=== PATIENT | male | born 1980 | race Caucasian/White ===

== ENCOUNTER 2020-07-04 22:25 | Observation (INO) | payer BC, SELFPAY ==
[2020-07-04 22:26] VITALS: BP 150/93; PULSE 96; RESP 17; TEMP 36.8; O2SAT 99; BMI 36.9
--- NOTE | 2020-07-04 22:32 | XR_ITS ---
PROCEDURE: XR CHEST 2V Referring Doctor: Dong Canas Patient Age:39Y CLINICAL HISTORY: chest pain left-sided chest pain radiates to the left arm and jaw all arm is tingling and hertz. COMPARISON: No exams were available for comparison FINDINGS: PA and lateral chest performed today. Upright. No previous chest films for comparison. The lungs are well expanded and clear. The cardiomediastinal silhouette and pulmonary vascularity are within normal limits. The lungs are clear without infiltrates, suspicious nodules, or pleural effusions. No acute bony abnormalities. IMPRESSION: Lungs clear with nothing definitely acute at the chest.. Heart normal size Dictated by: Yung Krishnamurthy MD 07/05/2020 00:43 Yung Krishnamurthy MD in [place] 07/05/2020 00:43
--- NOTE | 2020-07-04 22:33 | ECG_ITS ---
APPROVED REPORT Exam: Resting ECG HR:108 bpm ECG Measurements Heart Rate 108 AXES NH 148 P 35 QRSd 76 QRS 78 QT 324 T 52 QTc 434 Conclusion Sinus tachycardia Otherwise normal ECG Electronically signed by : Sebastián Rachel, 07/06/2020 17:32:16
[2020-07-04 22:42] LABS: Basophils # 0.1 K/mm3 (0-0.2); Basophils % 0.9 % (0.1-2.0); Eosinophils # 0.5 K/mm3 (0.0-0.4); Eosinophils % 3.5 % (0.1-12.0); Hematocrit 47.5 % (42.0-52.0); Hemoglobin 16.5 g/dL (14.1-18.0); Lymphocytes # 3.9 K/mm3 (0.7-4.5); Lymphocytes % 30.1 % (10-50); Mean Corpuscular HGB Conc 34.7 g/dL (31.8-35.4); Mean Corpuscular Hemoglobin 32.7 pg (27.0-31.2); Mean Corpuscular Volume 94.2 fl (80-94); Mean Platelet Volume 9.1 fl (7.4-10.4); Monocytes # 0.7 K/mm3 (0.1-1.0); Monocytes % 5.4 % (1.7-9.3); Neutrophils # 7.8 K/mm3 (1.8-7.8); Neutrophils % 60.1 % (37.0-80.0); Platelet Count 217 K/mm3 (142-424); Red Blood Count 5.04 M/mm3 (4.60-6.20); Red Cell Distribution Width 13.2 % (11.5-17.5)
[2020-07-04 22:50] LABS: Chloride 101 mmol/L (98-107); Sodium 136 mmol/L (136-145)
[2020-07-04 22:53] LABS: Anion Gap 15.5 mEq/L (5-15); Blood Urea Nitrogen 18 mg/dl (9-20); Carbon Dioxide 25 mmol/L (22.0-30.0); Creatinine Clearance Estimated 198 mL/min (50-200); Estimated Glomerular Filt Rate 94 ml/min (>60); GFR (African American) 114 ML/MIN (>60)
[2020-07-04 22:54] VITALS: BP 140/79; PULSE 96; RESP 18; O2SAT 96
[2020-07-04 22:54] LABS: Calcium 9.5 mg/dl (8.4-10.2); Glucose 199 mg/dl (74-100)
[2020-07-04 22:57] LABS: Potassium 5.5 mmoL/L (3.5-5.1)
[2020-07-04 23:00] VITALS: BP 127/79; PULSE 103; RESP 18; O2SAT 97
--- NOTE | 2020-07-04 23:05 | HMH.EDCP ---
ED Disposition Clinical Impression: Obesity (BMI 30-39.9), Tobacco use, COVID-19 virus IgG antibody detected Chest pain Qualifiers: Chest pain type: precordial pain Qualified Code(s): R07.2 - Precordial pain Diabetes mellitus Qualifiers: Diabetes mellitus type: type 2 Diabetes mellitus plug stitcher insulin use: unspecified shelter insulin use status Diabetes mellitus complication status: with other specified complication Qualified Code(s): E11.69 - Type 2 diabetes mellitus with other specified complication Disposition: Admitted as Observation Condition on Discharge: Good Referrals: PCP,No [Primary Care Provider] - - Critical Care Critical Care Time: No Attestation: On 07/04/20, the high probability of a clinically significant, sudden or life threatening deterioration of the following system(s) required my full and direct attention, intervention and personal management. The time I documented below is in addition to time spent performing reported procedures but includes the following listed in this critical care notation. Medical Decision Making - Medical Records Medical records reviewed: Yes: I reviewed the patient's medical records. - George Inquiry Pt receiving controlled substance: No Vital Signs: 07/04/20 22:26 07/04/20 22:54 Temperature 98.3 F Temperature Source Oral Pulse Rate [Left Radial] 96 H 96 H Respiratory Rate 17 18 Blood Pressure [Right Arm] 150/93 H 140/79 Blood Pressure Mean [Right Arm] 112 99 Blood Pressure Source [Right Arm] Automatic Cuff Blood Pressure Position [Right Arm] Sitting 02 Sat by Pulse Oximetry 99 96 Oxygen Delivery Method Room Air Room Air - Lab Data Lab results reviewed: Yes: I reviewed the patient's lab results. Lab Results 07/04/20 22:30: WBC 13.0 H, RBC 5.04, Hgb 16.5, Hct 47.5, MCV 94.2 H, MCH 32.7 H, MCHC 34.7, RDW 13.2, Plt Count 217, MPV 9.1, Neut % (Auto) 60.1, Lymph % (Auto) 30.1, Hemphill % (Auto) 5.4, Eos % (Auto) 3.5, Baso % (Auto) 0.9, Neut # (Auto) 7.8, Lymph # (Auto) 3.9, Hemphill # (Auto) 0.7, Eos # (Auto) 0.5 H, Baso # (Auto) 0.1 07/04/20 22:30: Sodium 136, Potassium 5.5 H, Chloride 101, Carbon Dioxide 25, Anion Gap 15.5 H, BUN 18, Creatinine 0.90, Estimated Creat Clear 198, Estimated GFR 94, Est GFR ( Amer) 114, Glucose 199 H, Calcium 9.5, Troponin I 0.02 Result diagrams: 07/04/20 22:30 07/04/20 22:30 Orders (Tests/Meds): ED MEDICATIONS Generic Name Dose Route Start Last Admin Trade Name Freq PRN Reason Stop Dose Admin Sodium Chloride 1,000 mls @ 999 mls/hr 07/04/20 22:45 07/04/20 22:50 Sod Chlor 0.9% 1000ml Bag IV 07/04/20 23:45 999 mls/hr .Q1H1M STAR Administration Discontinued Medications Generic Name Dose Route Start Last Admin Trade Name Freq PRN Reason Stop Dose Admin Aspirin 81 mg 07/04/20 22:34 07/04/20 22:50 Aspirin 81mg Chewable Tablet PO 07/04/20 22:35 81 mg ONCE ONE Administration Nitroglycerin 0.4 mg 07/04/20 22:34 07/04/20 22:50 Nitroglycerin 0.4mg Sl Tablet SL 07/04/20 22:35 0.4 mg ONCE ONE Administration Nitroglycerin 1 gm 07/04/20 23:05 07/04/20 23:11 Nitroglycerin 1 Gm Ointment TD 07/04/20 23:06 1 gm ONCE ONE Administration ORDERS Category Date Time Status Chest XR 2 view (NOT portable) [XR chest 2V] Stat Exams 07/04/20 22:32 Taken Covid-19 IgG/IgM ([facility]) Stat Lab 07/04/20 22:30 Received Troponin I Q3H Lab 07/05/20 01:45 Ordered Troponin I Q3H Lab 07/05/20 04:45 Ordered - Radiology Data #1 Image(s): Chest Image Reviewed: Yes I reviewed the patient's radiology image Preliminary Findings: Normal/NAD - ECG Data Tracing #1 Normal Sinus Rhythm: Yes Ischemic changes: non-specific ST-T wave changes Chest Pain HPI - General Chief Complaint: Chest Pain Stated Complaint: chest pain Time Seen by Provider: 07/04/20 22:40 Mode of Arrival: Ambulatory Source of Information: Patient, Medical Record Limitations: No Limitations Description o
[2020-07-04 23:06] LABS: Troponin I 0.02 ng/ml (0.00-0.034)
--- NOTE | 2020-07-04 23:09 | PC.NURSE ---
calling [facility] to obtain prior heart cath records
--- NOTE | 2020-07-04 23:14 | PC.NURSE ---
medical release consent sent to house wirer at [facility]. stated she would fax me the records
[2020-07-04 23:52] VITALS: BP 133/84; PULSE 101; RESP 18; O2SAT 95
[2020-07-04 23:53] LABS: Coronavirus 19 IgG Antibody Positive (Negative); Coronavirus 19 IgM Antibody Negative (Negative)
[2020-07-05] VITALS (13 sets, daily range): BP systolic 111–140; BP diastolic 66–77; PULSE 60–90; RESP 16–20; TEMP 36.4–36.8; O2SAT 95–98; BMI 35.1; BMI 35.0
--- NOTE | 2020-07-05 | CA_ITS ---
APPROVED REPORT Exam: Pharmacologic Technologist: Fatoumata Medrano, Ht: 6 ft 0 in Wt: 264 lbs BSA: 2.40 m2 HR: 78 bpm BP: 118/77 mmHg Indications: Chest pain Stress Test Details Test: LEXISCAN HR Resting HR: 80 bpm Max Heart Rate (APMHR): 181 bpm Max HR Achieved: 104 bpm Target HR (85% APMHR): 153 bpm % of APMHR: 57 Recovery HR: 87 bpm BP Resting BP: 118/77 mmHg Max BP: 140/76 mmHg Recovery BP: 130.0/69.0 mmHg ECG Clinical Exercise duration: 04:04 min Highest Stage Achieved: Exercise capacity: 1.0 METs Stress ECG Conclusion Resting EKG: Sinus Rhythm Lexiscan portion completed Pt c/o SOB during peak infusion. Symptoms: No chest pain, (+) SOB during peak infusion, resolved in recovery. Arrhythmias/Ectopy: No ectopy ST-T Changes: Less than 1.5mm ST Depression. Conclusion: Images to follow Test Summary REST . . . . . . . Resting REST 05:18 . . 80 . 118/ 77 . . Stage 1 . . . . . . . Myoview Injected Stage 1 01:00 . . 93 . . . . Stage 2 01:00 . . 104 . 114/ 73 . . Stage 3 01:00 . . 84 . 114/ 78 . . Stage 4 01:00 . . 85 . 140/ 76 . . Stage 4 01:04 . . 90 . 140/ 76 . Stop exercise at 04:04 RECOVERY 01:00 . . 89 . 118/ 69 . . RECOVERY 02:00 . . 87 . 138/ 74 . . RECOVERY 03:00 . . 82 . 138/ 74 . . RECOVERY 03:22 . . 87 . 130/ 69 . . Electronically signed by : Sung Dixon, 07/06/2020 05:47:52
[2020-07-05 00:05] LABS: Chol/HDL Ratio 8.2 (1-3.5); Cholesterol 280 mg/dl (140-200); HDL Cholesterol 34 mg/dl (40-60); Triglycerides 362 mg/dl (30-150); VLDL Cholesterol 72 mg/dL (0-40)
[2020-07-05 00:06] LABS: Hemoglobin A1C 6.6 % (4.0-6.0)
[2020-07-05 00:12] LABS: Direct LDL Cholesterol 205.97 mg/dL (100-129)
--- NOTE | 2020-07-05 02:33 | PC.NURSE ---
PT ARRIVED TO THE FLOOR VIA W/C FROM ED AT 0235
[2020-07-05 02:43] LABS: Troponin I < 0.01 ng/ml (0.00-0.034)
--- NOTE | 2020-07-05 03:09 | PC.NURSE ---
Pt states he hasn't taken home medication for 3 weeks
--- NOTE | 2020-07-05 03:42 | PC.NURSE ---
Pt states he wears a CPAP at home. Will try to have girlfriend bring in AM.
[2020-07-05 05:01] LABS: Basophils # 0.1 K/mm3 (0-0.2); Basophils % 0.8 % (0.1-2.0); Eosinophils # 0.4 K/mm3 (0.0-0.4); Eosinophils % 4.1 % (0.1-12.0); Hemoglobin 14.4 g/dL (14.1-18.0); Lymphocytes # 3.6 K/mm3 (0.7-4.5); Lymphocytes % 35.4 % (10-50); Mean Corpuscular Hemoglobin 32.9 pg (27.0-31.2); Mean Corpuscular Volume 93.9 fl (80-94); Monocytes # 0.5 K/mm3 (0.1-1.0); Monocytes % 4.7 % (1.7-9.3); Neutrophils # 5.6 K/mm3 (1.8-7.8); Platelet Count 189 K/mm3 (142-424); Red Blood Count 4.37 M/mm3 (4.60-6.20); Red Cell Distribution Width 13.2 % (11.5-17.5); White Blood Count 10.1 K/mm3 (4.8-10.8)
[2020-07-05 05:10] LABS: Anion Gap 9.2 mEq/L (5-15); Blood Urea Nitrogen 17 mg/dl (9-20); Calcium 8.9 mg/dl (8.4-10.2); Carbon Dioxide 25 mmol/L (22.0-30.0); Chloride 107 mmol/L (98-107); Creatinine Clearance Estimated 212 mL/min (50-200); Estimated Glomerular Filt Rate 108 ml/min (>60); GFR (African American) 130 ML/MIN (>60); Magnesium 1.9 mg/dl (1.6-2.3); Potassium 4.2 mmoL/L (3.5-5.1); Sodium 137 mmol/L (136-145)
[2020-07-05 05:18] LABS: Glucose 152 mg/dl (74-100)
[2020-07-05 05:49] LABS: Troponin I < 0.01 ng/ml (0.00-0.034)
--- NOTE | 2020-07-05 06:05 | PC.NURSE ---
Pt is alert and oriented x4. Pt states mild chest pressure to left upper chest this am. Main complaints is SANCHEZ, administered tylenol per mar x1. Noted resting with eyes closed upon reassessment. Pt awake most of am since arriving to unit. Independent care/amb. Tolerated RA well with no c/o SOA. Bilateral lungs noted clear. +2 pitting edema to bilat ankles. TEDS BLE. Remains NPO. VSS. Remains safe. Call light within reach. Will continue to monitor.
[2020-07-05 06:21] LABS: POC Glucose,Bedside 145 (70-110)
--- NOTE | 2020-07-05 06:33 | PC.NURSE ---
Kavon HARTMAN NOTIFIED OF CONSULT
--- NOTE | 2020-07-05 07:28 | HMH.PHAVTE ---
[facility] Pharmacy VTE Monitoring - Patient Demographics Admission date: 07/04/20 Report Date: 07/05/20 Time: 07:28 Allergies/Adverse Reactions: Patient Allergies ketorolac [From TORADOL] Allergy (Unknown, Verified 07/04/20 23:10) I-HIVRAFY Height: 1.85 m Weight: 119.862 kg Patient Problems: Current Active Problems Chest pain (Acute) Obesity (BMI 30-39.9) (Acute) Tobacco use (Acute) Diabetes mellitus (Acute) COVID-19 virus IgG antibody detected (Acute) - VTE Risk Labs: VTE Related Lab Results Hgb 14.4 g/dL (14.1-18.0) D 07/05/20 04:50 Hct 41.0 % (42.0-52.0) L 07/05/20 04:50 Plt Count 189 K/mm3 (142-424) 07/05/20 04:50 BUN 17 mg/dl (9-20) 07/05/20 04:50 Creatinine 0.80 mg/dl (0.66-1.25) 07/05/20 04:50 Estimated Creat Clear 212 mL/min (50-200) 07/05/20 04:50 VTE Score: 4 VTE Risk Level: Low Risk - Prophylaxis VTE Prophylaxis Ordered?: Yes Types of VTE Prophylaxis: TEDS Knee High Location of Applied Device: Bilateral Lower Extremeties
--- NOTE | 2020-07-05 08:00 | CA_ITS ---
APPROVED REPORT EXAM: Comprehensive 2D, Doppler, and color-flow Echocardiogram Contracting Officer: Elena Mejia RDCS Ht: 6 ft 1 in Wt: 280lbs BSA: 2.48 BP: 140/79 mmHg Indications: CP,SMOKER,DM 2D Dimensions LVOT 2.10 cm (M/F) 1.5-2.5 M-Mode Dimensions RVDd 2.63 cm (0.9-2.6) LA Diam 3.83 cm (1.9-4.0) LVDd 5.24 cm (3.5-5.7) Ao Diam 3.02 cm (2.0-3.7) LVDs 3.36 cm (3.5-5.7) IVSd 1.02 cm (0.6-1.1) PWd 1.06 cm (0.6-1.1) EF (Teich) 76.60% FS 46.20% EDV (Teich) 196.90 mL ESV (Teich) 46.10 mL LV Diastology E Decel Time 167.00 (160-240 msec) E/A Ratio 1.0 MED E' 10.20 (< 7 cm/sec) E'/MED E' Ratio 6.28 (>14) LAT E' 13.30 (<10 cm/sec) E/LAT E' Ratio 4.82 (>14) Mitral Valve MV E Max Kike. 64.00 (40-130 cm/s) MV A Velocity 62.00 (40-130 cm/s) E/A Ratio 1.03 MV Decel. Time 167.00 (160-240 ms) MV PHT 49.00 ms Left Ventricle Left atrium is normal size, left ventricle is normal size, there is preserved left ventricular systolic function, visually estimated ejection fraction 55% with no regional wall motion abnormality, diastolic parameters are within normal range. Right Ventricle Right atrium and right ventricular normal size and contractility. Aortic Valve Aortic valve is grossly normal, there is no aortic stenosis or aortic insufficiency. Mitral Valve Mitral valve grossly normal, there is trace mitral regurgitation. Tricuspid Valve Tricuspid valve grossly normal, there is trace tricuspid regurgitation, tricuspid regurgitation jet velocity is inadequate for calculation of the right ventricular systolic pressure. Pulmonic Valve Pulmonic valve is poorly visualized. Great Vessels Aortic root is normal size. Pericardium No significant pericardial effusion noted. Conclusion 1. Normal left ventricular size, preserved left ventricular systolic function, visually estimated ejection fraction 55% with no regional wall motion abnormality, diastolic parameters are within normal range. 2. Trace mitral and tricuspid regurgitation. 3. No significant pericardial effusion noted. Electronically signed by : Sung Dixon, 07/06/2020 05:14:15
--- NOTE | 2020-07-05 09:14 | HMH.CNCARD ---
History of Present Illness Consult date: 07/05/20 Requesting physician: Dong Canas Consult reason: chest pain Chief complaint: chest pain Additional Medical History:: 1. Diabetes mellitus, treated for many years 2. History of tobacco use, continued 3. Strong family history of coronary artery disease in his mother who at age 50 from a heart attack and a sister who is 1 year older who has had coronary stenting. 4. Hypertension 5. Hyperlipidemia. 6. Legally blind in right eye, prosthetic eye left side 7. Coronary artery disease A. [facility], 06/02/2019, [place], [place]. Left main normal, LAD with proximal and mid vessel 20% lesions, circumflex is small with a ostial 50% stenosis. Right coronary artery is normal. Normal LV systolic function at 60-65% with no wall motion abnormalities. History of present illness: 39-year-old white male with diabetes, hypertension, hyperlipidemia and history of tobacco use presented to the emergency department for chest pain at rest with radiation into the left arm producing symptoms of alternating numbness and tingling. Patient recently moved to this area and due to insurance issues has been out of his medication for about 3 weeks. He previously had some chest discomfort even on his medications but symptoms have progressively worsened since he has been off of them. He is unable to walk long distance (more than a block) without chest pressure, shortness of breath and chest tightness. The symptoms do improve with rest. Initial EKG is sinus rhythm at a rate of 107 bpm with no acute ST segment changes. Troponins overnight have returned normal x3. Preliminary echocardiogram shows preserved ejection fraction. Recent cardiac catheterization obtained from [facility] in [facility] from June 02, 2019 showing ejection fraction of 60 to 65% with normal wall motion abnormality and no regional wall motion abnormalities. Left main was normal as was the right coronary artery. LAD showed a 20% proximal stenosis and a mid vessel lesion as well. Circumflex artery was small with a ostial 50% stenosis. Cardiology consulted for evaluation and recommendations. [facility] History Medical History: Reports:: Diabetes Mellitus Type 2, Hyperlipidemia, Hypertension Denies:: Cancer, Diabetes Mellitus Type 1, MRSA *Have you ever received a pneumonia vaccine?: No *Have you received a flu vaccine this season?: No Laterality Cases: Bilateral: Tonsillectomy Other Surgeries: Yes: Appendectomy Amputation: No - *Social History Last grade of school completed: 11th or 12th Smoking Status: Current every day smoker Tobacco Type: cigarettes # Packs/Day (cigarettes): 1 Alcohol Intake: former *Occupational Status:: disabled Housing: apartment *Travel in the last 8 weeks: None Family Hx:: Asthma, Coronary Artery Disease, Diabetes, Heart Attack, Hyperlipidemia, Hypertension, Mental illness Meds Home Medications Medication Instructions Recorded Confirmed Type Isosorbide Dinitrate [Isosorbide 40 mg PO DAILY 07/04/20 07/05/20 History Dinitrate ER] Levomilnacipran HCl [Fetzima] 20 mg PO DAILY 07/04/20 07/05/20 History Metformin HCl [Metformin 1000mg 1,000 mg PO BID 07/04/20 07/05/20 History Tablets] Quetiapine Fumarate [Seroquel] 100 mg PO HS 07/04/20 07/05/20 History Simvastatin 20 mg PO HS 07/04/20 07/05/20 History lisinopriL [Lisinopril 40mg Tablet] 40 mg PO DAILY 07/04/20 07/05/20 History Cyclobenzaprine HCl [Flexeril 10mg 10 mg PO TIDP PRN 07/05/20 07/05/20 History tablet] Allergies Allergy/AdvReac Type Severity Reaction Status Date / Time ketorolac [From TORADOL] Allergy Unknown I-HIVES Verified 07/04/20 23:10 Exam Vital signs and Labs for Last 24 Hours: Temp Pulse Resp BP Pulse Ox 98.1 F 71 18 136/77 97 07/05/20 08:00 07/05/20 08:00 07/05/20 08:00 07/05/20 08:00 07/05/20 08:00 Laboratory Results - last 24 hr 07/04/20 22:30: WBC
--- NOTE | 2020-07-05 09:46 | NM_ITS ---
APPROVED REPORT Exam: Nuclear Stress Test Indication: HTN, D.M., HYPERLIPIDEMIA, TOB USE, FM HX, C.P. Patient Location: Outpatient Stress Tech: Barbiechristine Alexander RI Tech:Ileana Reyez, ARRT, RT (R)(N) Ht: 6 ft 2 in Wt: 290 lbs HR: 78 bpm BP: 118/77 mmHg BSA: 2.54 m2 BMI: 37.2 History: HTN, D.M., HYPERLIPIDEMIA, TOB USE, FM HX, C.P. Procedure: Patient received a 0.4 mg of intravenous Lexiscan, resting heart rate 78 bpm, resting blood pressure 118/77 mmHg, with Lexiscan maximum heart rate achived was 101 bpm which is % of the maximum predicted heart rate and blood pressure was 114/78 mmHg. With Lexiscan, patient denied any complaint of chest pain. Cardiac Stress and Resting SPECT Images: Cardiac Stress and Resting SPECT images were obtained using technetium 99m Myoview 31.9 mCi stress and 10.88 mCi at rest. EF 58% No reversible or fixed defects Conclusion: Normal Electronically signed by : Keagan Rodriguez MD 07/05/2020 16:12:00
--- NOTE | 2020-07-05 11:21 | HMH.PHAINT ---
MED REC- PATIENT STATED THAT HE HAS NOT TAKEN ANY OF HIS MEDICATIONS FOR AT LEAST THREE WEEKS. PATIENT IS UNSURE OF WHAT PHARMACY HE USED OR WHAT DOCTOR PRESCRIBED HIS MEDICATIONS. CALLED [facility] IN [place] AND THEY DO NOT HAVE THIS PATIENT IN THEIR SYSTEM. -DAVINA BRUMFIELD, PHARMD
[2020-07-05 11:36] LABS: POC Glucose,Bedside 143 (70-110)
--- NOTE | 2020-07-05 11:56 | HMH.HP ---
*Admission Date: 07/04/20 *Chief complaint: chest pain *History of present illness: 39-year-old white male with diabetes, hypertension, hyperlipidemia and history of tobacco use presented to the emergency department for chest pain at rest with radiation into the left arm producing symptoms of alternating numbness and tingling. Patient recently moved to this area and due to insurance issues has been out of his medication for about 3 weeks. He previously had some chest discomfort even on his medications but symptoms have progressively worsened since he has been off of them. He is unable to walk long distance (more than a block) without chest pressure, shortness of breath and chest tightness. The symptoms do improve with rest. Initial EKG is sinus rhythm at a rate of 107 bpm with no acute ST segment changes. Troponins overnight have returned normal x3. Preliminary echocardiogram shows preserved ejection fraction. Recent cardiac catheterization obtained from [facility] in [facility] from June 02, 2019 showing ejection fraction of 60 to 65% with normal wall motion abnormality and no regional wall motion abnormalities. Left main was normal as was the right coronary artery. LAD showed a 20% proximal stenosis and a mid vessel lesion as well. Circumflex artery was small with a ostial 50% stenosis. Cardiology consulted for evaluation and recommendations.-per lima [facility] History I have reviewed the patient's past medical history: Yes Medical History: Reports:: Diabetes Mellitus Type 2, Hyperlipidemia, Hypertension Denies:: Cancer, Diabetes Mellitus Type 1, MRSA *Have you ever received a pneumonia vaccine?: No *Have you received a flu vaccine this season?: No Laterality Cases: Bilateral: Tonsillectomy Other Surgeries: Yes: Appendectomy Amputation: No - *Social History Last grade of school completed: 11th or 12th Smoking Status: Current every day smoker Tobacco Type: cigarettes # Packs/Day (cigarettes): 1 Alcohol Intake: former *Occupational Status:: disabled Housing: apartment *Travel in the last 8 weeks: None Family Hx:: Asthma, Coronary Artery Disease, Diabetes, Heart Attack, Hyperlipidemia, Hypertension, Mental illness Review of Systems - Review of Systems Review of systems:: pertinent systems reviewed and negative unless documented below - Constitutional Denies body ache(s) - Eyes Reports other, Denies change in vision - ENT Denies mouth pain, Denies post nasal drip - *Cardiovascular Reports chest pain, Reports chest pain at rest, Reports shortness of breath - *Respiratory Reports shortness of breath with activity, Denies chest congestion - *Gastrointestinal Denies nausea, Denies vomiting - *Genitourinary Denies difficulty urinating - *Musculoskeletal Denies joint pain - Integumentary/Breasts Denies rash - *Neurologic Denies localized weakness - Psychiatric Denies anxiety - Endocrine Denies flushing - Hematologic/Lymphatic Denies enlarged lymph nodes Meds Home Medications Medication Instructions Recorded Confirmed Type Isosorbide Dinitrate [Isosorbide 40 mg PO DAILY 07/04/20 07/05/20 History Dinitrate ER] Levomilnacipran HCl [Fetzima] 20 mg PO DAILY 07/04/20 07/05/20 History Metformin HCl [Metformin 1000mg 1,000 mg PO BID 07/04/20 07/05/20 History Tablets] Quetiapine Fumarate [Seroquel] 100 mg PO HS 07/04/20 07/05/20 History Simvastatin 20 mg PO HS 07/04/20 07/05/20 History lisinopriL [Lisinopril 40mg Tablet] 40 mg PO DAILY 07/04/20 07/05/20 History Cyclobenzaprine HCl [Flexeril 10mg 10 mg PO TIDP PRN 07/05/20 07/05/20 History tablet] Allergies Allergy/AdvReac Type Severity Reaction Status Date / Time ketorolac [From TORADOL] Allergy Unknown I-HIVES Verified 07/04/20 23:10 Exam Vital signs and Labs for Last 24 Hours: Temp Pulse Resp BP Pulse Ox 98.1 F 71 18 136/77 97 07/05/20 08:00 07/05/20 08:00 07/05/20 08:00 07/05/20 08:00 07/05
--- NOTE | 2020-07-05 11:59 | PC.NURSE ---
PT OFF FLOOR AT THIS TIME FOR RADIOLOGY PROCEDURE. REPORT GIVEN TO Taryn MICHAELS
--- NOTE | 2020-07-05 17:01 | PC.NURSE ---
PATIENT A7O X4, LUNGS CLEAR, PULSES EQUAL. PATIENT IS LEGALLY BLIND, LEFT EYE IS A PROSTHETIC AND RIGHT EYE PUPIL IS NON REACCTIVE. PATIENT HAD NUCLEAR SCAN PERFORMED DURING THIS RN SHIFT. NO RESULTS THUS FAR. PATIENT IS CONTINUED ON NPO STATUS AWAITING RESULTS. PATIENT AMBULATES TO RESTOOM, STEADY GAIT. NO OTHER CONCERNS AT THIS TIME.
--- NOTE | 2020-07-05 17:32 | HMH.DCSUM ---
General - General Admission date:: 07/05/20 Discharge date: 07/05/20 HPI HPI: 39-year-old white male with diabetes, hypertension, hyperlipidemia and history of tobacco use presented to the emergency department for chest pain at rest with radiation into the left arm producing symptoms of alternating numbness and tingling. Patient recently moved to this area and due to insurance issues has been out of his medication for about 3 weeks. He previously had some chest discomfort even on his medications but symptoms have progressively worsened since he has been off of them. He is unable to walk long distance (more than a block) without chest pressure, shortness of breath and chest tightness. The symptoms do improve with rest. Initial EKG is sinus rhythm at a rate of 107 bpm with no acute ST segment changes. Troponins overnight have returned normal x3. Preliminary echocardiogram shows preserved ejection fraction. Recent cardiac catheterization obtained from [facility] in [facility] from June 02, 2019 showing ejection fraction of 60 to 65% with normal wall motion abnormality and no regional wall motion abnormalities. Left main was normal as was the right coronary artery. LAD showed a 20% proximal stenosis and a mid vessel lesion as well. Circumflex artery was small with a ostial 50% stenosis. Cardiology consulted for evaluation and recommendations.-per [facility] Course Hospital Course: Laboratory Tests 07/04/20 07/04/20 07/04/20 22:30 22:30 22:30 WBC 13.0 H RBC 5.04 Hgb 16.5 Hct 47.5 MCV 94.2 H MCH 32.7 H MCHC 34.7 RDW 13.2 Plt Count 217 MPV 9.1 Neut % (Auto) 60.1 Lymph % (Auto) 30.1 Sutton % (Auto) 5.4 Eos % (Auto) 3.5 Baso % (Auto) 0.9 Neut # (Auto) 7.8 Lymph # (Auto) 3.9 Sutton # (Auto) 0.7 Eos # (Auto) 0.5 H Baso # (Auto) 0.1 Sodium 136 Potassium 5.5 H Chloride 101 Carbon Dioxide 25 Anion Gap 15.5 H BUN 18 Creatinine 0.90 Estimated Creat Clear 198 Estimated GFR 94 Est GFR ( Amer) 114 Glucose 199 H POC Glucose Hemoglobin A1c Calcium 9.5 Magnesium Troponin I 0.02 Triglycerides Cholesterol LDL Cholesterol Direct VLDL Cholesterol HDL Cholesterol Cholesterol/HDL Ratio SARS-CoV-2 IgG Ab (Rapid) Positive A SARS-CoV-2 IgM Ab (Rapid) Negative 07/04/20 07/04/20 07/05/20 22:30 22:30 01:54 WBC RBC Hgb Hct MCV MCH MCHC RDW Plt Count MPV Neut % (Auto) Lymph % (Auto) Sutton % (Auto) Eos % (Auto) Baso % (Auto) Neut # (Auto) Lymph # (Auto) Sutton # (Auto) Eos # (Auto) Baso # (Auto) Sodium Potassium Chloride Carbon Dioxide Anion Gap BUN Creatinine Estimated Creat Clear Estimated GFR Est GFR ( Amer) Glucose POC Glucose Hemoglobin A1c 6.6 H Calcium Magnesium Troponin I < 0.01 Triglycerides 362 H Cholesterol 280 H LDL Cholesterol Direct 205.97 H VLDL Cholesterol 72 H HDL Cholesterol 34 L Cholesterol/HDL Ratio 8.2 H SARS-CoV-2 IgG Ab (Rapid) SARS-CoV-2 IgM Ab (Rapid) 07/05/20 07/05/20 07/05/20 04:50 04:50 06:12 WBC 10.1 RBC 4.37 L Hgb 14.4 D Hct 41.0 L MCV 93.9 MCH 32.9 H MCHC 35.0 RDW 13.2 Plt Count 189 MPV 8.0 Neut % (Auto) 55.0 Lymph % (Auto) 35.4 Sutton % (Auto) 4.7 Eos % (Auto) 4.1 Baso % (Auto) 0.8 Neut # (Auto) 5.6 Lymph # (Auto) 3.6 Sutton # (Auto) 0.5 Eos # (Auto) 0.4 Baso # (Auto) 0.1 Sodium 137 Potassium 4.2 D Chloride 107 Carbon Dioxide 25 Anion Gap 9.2 BUN 17 Creatinine 0.80 Estimated Creat Clear 212 Estimated GFR 108 Est GFR ( Amer) 130 Glucose 152 H D POC Glucose 145 H Hemoglobin A1c Calcium 8.9 Magnesium 1.9 Troponin I < 0.01 Triglycerides
--- NOTE | 2020-07-05 18:25 | PC.NURSE ---
PATIENT A&O X4, LUNGS CLEAR, PULSES EQUAL. PATIENT ATE DINNER BEFORE DISCHARGE. PATIENT LEFT FLOOR VIA WHEELCHAIR. PATIENT REFUSED TO STAY IN ROOM UNTIL RIDE ARRIVES. PATIENT WANTS TO WAIT IN LOBBY FOR RIDE. NO OTHER CONCERNS AT THIS TIME.
[2020-07-05 20:16] LABS: POC Glucose,Bedside 114 (70-110)
== END 2020-07-05 18:23 | disposition home or self-care (01) ==
LOC: ER 23:59 → 2ND 07-05 02:52
PROVIDERS: Admitting Provider Emergency Medicine; Emergency Provider Emergency Medicine; Visit Provider Emergency Medicine
DX: R07.9 Chest pain, unspecified (principal); E11.9 Type 2 diabetes mellitus without complications; I10 Essential (primary) hypertension; Z72.0 Tobacco use; Z82.49 Family history of ischemic heart disease and other diseases of the circulatory system; Z86.19 Personal history of other infectious and parasitic diseases; Z79.84 Long term (current) use of oral hypoglycemic drugs; Z79.899 Other long term (current) drug therapy; T50.906A Underdosing of unspecified drugs, medicaments and biological substances, initial encounter; Z91.120 Patient's intentional underdosing of medication regimen due to financial hardship
CPT/HCPCS: 36415; 71046; 78452; 80048; 80061; 82962; 83036; 83735; 84484; 85025; 86328; 93005; 93017; 93306; 96365; 99283; A9502; G0378; J2785

== ENCOUNTER → 2020-08-25 17:39 | Outpatient (CLI) | payer BC, SELFPAY ==
[2020-08-25 18:17] LABS: Creatinine,Urine Random 162 mg/dL (Not Estab.)
[2020-08-25 18:21] LABS: Microalbumin/Creatinine Ratio 6.6
== END ==
PROVIDERS: Visit Provider Nurse Practitioner Family
DX: E11.9 Type 2 diabetes mellitus without complications (principal); Z79.84 Long term (current) use of oral hypoglycemic drugs
CPT/HCPCS: 82043; 82570

== ENCOUNTER 2020-09-21 23:40 | Emergency (ER) | payer BC, SELFPAY ==
[2020-09-21 23:35] VITALS: BP 157/71; PULSE 105; PULSE 96; RESP 16; TEMP 37.1; O2SAT 95; O2SAT 96; BMI 34.7
[2020-09-21 23:57] LABS: Basophils # 0.1 K/mm3 (0-0.2); Basophils % 0.9 % (0.1-2.0); Eosinophils # 0.4 K/mm3 (0.0-0.4); Eosinophils % 3.6 % (0.1-12.0); Hematocrit 44.3 % (42.0-52.0); Hemoglobin 14.6 g/dL (14.1-18.0); Lymphocytes # 3.1 K/mm3 (0.7-4.5); Lymphocytes % 28.8 % (10-50); Mean Corpuscular HGB Conc 33.1 g/dL (31.8-35.4); Mean Corpuscular Hemoglobin 31.2 pg (27.0-31.2); Mean Corpuscular Volume 94.4 fl (80-94); Mean Platelet Volume 7.2 fl (7.4-10.4); Monocytes # 0.5 K/mm3 (0.1-1.0); Monocytes % 4.9 % (1.7-9.3); Neutrophils # 6.6 K/mm3 (1.8-7.8); Neutrophils % 61.9 % (37.0-80.0); Platelet Count 212 K/mm3 (142-424); Red Blood Count 4.69 M/mm3 (4.60-6.20); Red Cell Distribution Width 12.8 % (11.5-17.5); White Blood Count 10.6 K/mm3 (4.8-10.8)
[2020-09-21 23:59] LABS: Chloride 101 mmol/L (98-107); Sodium 137 mmol/L (136-145)
[2020-09-22 00:01] LABS: Alanine Aminotransferase 33 U/L (12-78); Alkaline Phosphatase 85 U/L (38-126); Amylase 56 U/L (30-110); Aspartate Amino Transferase 28 U/L (17-59); Bilirubin,Total 0.3 mg/dl (0.2-1.3); Blood Urea Nitrogen 13 mg/dl (9-20); Carbon Dioxide 27 mmol/L (22.0-30.0); Creatinine Clearance Estimated 155 mL/min (50-200); Estimated Glomerular Filt Rate 74 ml/min (>60); GFR (African American) 90 ML/MIN (>60)
[2020-09-22 00:02] LABS: Albumin Level 4.7 g/dl (3.5-5.0); Albumin/Globulin Ratio 1.4 (1.1-1.8); Calcium 9.5 mg/dl (8.4-10.2); Globulin 3.3 g/dL (1.3-3.2); Glucose 135 mg/dl (74-100); Lipase 130 U/L (23-300)
[2020-09-22 00:05] VITALS: BP 125/74; PULSE 97; O2SAT 97
[2020-09-22 00:07] LABS: C-Reactive Protein 6.1 mg/L (0-4)
[2020-09-22 00:12] LABS: Microscopic, Urine URINE MICROSCOPIC (MICROSCOPIC)
[2020-09-22 00:18] LABS: Appearance,Urine CLEAR (Clear); Bilirubin,Urine Negative (Negative); Blood, Urine Negative (Negative); Color,Urine YELLOW (Yellow); Glucose,Urine (UA) 3+ (Negative); Ketones,Urine Negative (Negative); Leukocyte Esterase,Urine Negative (Negative); Nitrate,Urine Negative (Negative); Protein,Urine Negative (Negative); Specific Gravity, Urine 1.015 (1.005-1.030); Urobilinogen,Urine 0.2 EU/dl (0.2)
[2020-09-22 00:24] LABS: Erythrocyte Sedimentation Rate 26 mm/hr (0-15)
--- NOTE | 2020-09-22 00:32 | CT_ITS ---
PROCEDURE: CT ABDOMEN PELVIS WO CON CLINICAL INDICATION: Flank pain Left flank pain COMPARISON: No exams were available for comparison TECHNIQUE: Axial images obtained with sagittal and coronal reformats. All CT scans at the facility use one or more dose reduction, viz: automated exposure control, ma/kV adjustment per patient size (including targeted exams where dose is matched to indication, i.e. head), or iterative reconstruction technique. FINDINGS: LOWER THORAX: Minimal pericardial thickening anteriorly ABDOMEN & PELVIS: The liver, spleen, adrenal glands, pancreas, and gallbladder have an unremarkable appearance. Mildly prominent tremayne hepatis, epigastric, and mesenteric lymph nodes.. No renal or ureteral calculi. No hydronephrosis. There is a 2.5 cm cyst along the lower pole of the right kidney medially. Surgical clips are present in the right lower quadrant from prior appendectomy. No intestinal obstruction or free air. There has been a prior hysterectomy. No evidence of diverticulitis. A neurostimulator device is present extending through the right S3-S4 foramen into the presacral region. There is a small right inguinal hernia which contains fat. No acute bony findings. IMPRESSION: 1. No acute finding. 2. Nonspecific mildly prominent mesenteric and tremayne hepatis nodes. Follow-up may confirm stability. 3. Other nonacute findings as described above. Dictated by: Keagan Rodriguez MD 09/22/2020 06:24 Keagan Rodriguez MD in [facility] 09/22/2020 06:24
[2020-09-22 00:35] VITALS: BP 138/76; PULSE 92; O2SAT 95
[2020-09-22 00:47] LABS: Bacteria,Urine Trace /lpf; WBC,Urine Occasional #/hpf (0-3)
[2020-09-22 01:05] VITALS: BP 102/82; PULSE 92; O2SAT 96
[2020-09-22 01:35] VITALS: BP 106/70; PULSE 95; O2SAT 94
--- NOTE | 2020-09-22 01:55 | HMH.EDBACK ---
ED Disposition Clinical Impression: Flank pain, acute Disposition: Home, Self-Care Condition on Discharge: Good Instructions: DI for Acute Pain -- Adult Additional Instructions: see pcp this week Referrals: Dong Canas MD [Primary Care Provider] - - Critical Care Critical Care Time: No Attestation: On 09/21/20, the high probability of a clinically significant, sudden or life threatening deterioration of the following system(s) required my full and direct attention, intervention and personal management. The time I documented below is in addition to time spent performing reported procedures but includes the following listed in this critical care notation. Medical Decision Making - Medical Records Medical records reviewed: Yes: I reviewed the patient's medical records. - George Inquiry Pt receiving controlled substance: No Vital Signs: 09/21/20 23:35 09/22/20 00:05 09/22/20 00:35 Temperature 98.7 F Temperature Source Oral Pulse Rate [Left Radial] 96 H 97 H 92 H Respiratory Rate 16 Blood Pressure [Right Arm] 157/71 H 125/74 138/76 Blood Pressure Mean [Right Arm] 99 91 96 Blood Pressure Source [Right Arm] Automatic Cuff Automatic Cuff Automatic Cuff Blood Pressure Position [Right Arm] Supine Supine Supine 02 Sat by Pulse Oximetry 95 97 95 Oxygen Delivery Method Room Air 09/22/20 01:05 09/22/20 01:35 09/22/20 02:00 Temperature Temperature Source Pulse Rate [Left Radial] 92 H 95 H 91 H Respiratory Rate Blood Pressure [Right Arm] 102/82 L 106/70 L 124/85 Blood Pressure Mean [Right Arm] 88 82 98 Blood Pressure Source [Right Arm] Automatic Cuff Automatic Cuff Automatic Cuff Blood Pressure Position [Right Arm] Supine Supine Supine 02 Sat by Pulse Oximetry 96 94 L 95 Oxygen Delivery Method Room Air Room Air - Lab Data Lab results reviewed: Yes: I reviewed the patient's lab results. Lab Results 09/21/20 23:40: WBC 10.6, RBC 4.69, Hgb 14.6, Hct 44.3, MCV 94.4 H, MCH 31.2, MCHC 33.1, RDW 12.8, Plt Count 212, MPV 7.2 L, Neut % (Auto) 61.9, Lymph % (Auto) 28.8, [place] % (Auto) 4.9, Eos % (Auto) 3.6, Baso % (Auto) 0.9, Neut # (Auto) 6.6, Lymph # (Auto) 3.1, [place] # (Auto) 0.5, Eos # (Auto) 0.4, Baso # (Auto) 0.1, ESR 26 H 09/21/20 23:40: Sodium 137, Potassium 4.0, Chloride 101, Carbon Dioxide 27, Anion Gap 13.0, BUN 13, Creatinine 1.10, Estimated Creat Clear 155, Estimated GFR 74, Est GFR ( Amer) 90, Glucose 135 H, Calcium 9.5, Total Bilirubin 0.3, AST 28, ALT 33, Alkaline Phosphatase 85, C-Reactive Protein 6.1 H, Total Protein 8.0, Albumin 4.7, Globulin 3.3 H, Albumin/Globulin Ratio 1.4, Amylase 56, Lipase 130 09/22/20 00:00: Urine Color Yellow, Urine Appearance Clear, Urine pH 6.0, Ur Specific [place] 1.015, Urine Protein Negative, Urine Glucose (UA) 3+, Urine Ketones Negative, Urine Blood Negative, Urine Nitrate Negative, Urine Bilirubin Negative, Urine Urobilinogen 0.2, Ur Leukocyte Esterase Negative, Urine WBC Occasional, Urine Bacteria Trace Result diagrams: 09/21/20 23:40 09/21/20 23:40 Orders (Tests/Meds): ED MEDICATIONS Generic Name Dose Route Start Last Admin Trade Name Freq PRN Reason Stop Dose Admin Sodium Chloride 1,000 mls @ 999 mls/hr 09/21/20 23:45 09/22/20 00:00 Sod Chlor 0.9% 1000ml Bag IV 09/22/20 00:45 999 mls/hr .Q1H1M STAR Administration Discontinued Medications Generic Name Dose Route Start Last Admin Trade Name Freq PRN Reason Stop Dose Admin Morphine Sulfate 2 mg 09/21/20 23:48 09/22/20 00:00 Morphine 2mg/Ml Syringe IV 09/21/20 23:49 2 mg ONCE ONE Administration Ondansetron HCl 4 mg 09/21/20 23:48 09/22/20 00:00 Ondansetron 4mg/2ml Vial IV 09/21/20 23:49 4 mg ONCE ONE Administration ORDERS Category Date Time Status CT abdomen pelvis wo con Stat Cat Scan 09/22/20 00:32 Taken CXR 2 view (NOT portable) [XR chest 2V] Stat Exams 09/22/20 01:59 Ordered - Radiology Data #1 Image(s): Chest Image
--- NOTE | 2020-09-22 01:59 | XR_ITS ---
PROCEDURE: XR CHEST 2V CLINICAL HISTORY: chest pain COMPARISON: CR XR CHEST 2V from 07/04/2020 FINDINGS: The cardiomediastinal silhouette and pulmonary vascularity are within normal limits. The lungs are clear without infiltrates, suspicious nodules, or pleural effusions. No acute bony abnormalities. IMPRESSION: No acute findings. Dictated by: Keagan Rodriguez MD 09/22/2020 05:20 Keagan Rodriguez MD in [facility] 09/22/2020 05:20
[2020-09-22 02:00] VITALS: BP 124/85; PULSE 91; O2SAT 95
[2020-09-22 03:24] VITALS: BP 148/95; PULSE 83; RESP 18; TEMP 36.7; O2SAT 98
== END 2020-09-22 03:26 | disposition home or self-care (01) ==
PROVIDERS: Emergency Provider Emergency Medicine; PCP Emergency Medicine
DX: R10.12 Left upper quadrant pain (principal); E11.65 Type 2 diabetes mellitus with hyperglycemia; E78.5 Hyperlipidemia, unspecified; I10 Essential (primary) hypertension; Z79.899 Other long term (current) drug therapy; F17.210 Nicotine dependence, cigarettes, uncomplicated
CPT/HCPCS: 71046; 74176; 80053; 81001; 82150; 83690; 85025; 85651; 86140; 96365; 96375; 99284; J2405

== ENCOUNTER 2020-11-05 22:39 | Emergency (ER) | payer BC, SELFPAY ==
[2020-11-05 22:53] VITALS: BP 147/88; PULSE 117; RESP 18; TEMP 36.7; O2SAT 97; BMI 34.7
--- NOTE | 2020-11-05 23:11 | CT_ITS ---
PROCEDURE: CT HEAD/BRAIN WO CON CLINICAL INDICATION: migraine Severe headache with blurred vision COMPARISON: No exams were available for comparison TECHNIQUE: Axial images obtained. All CT scans at the facility use one or more dose reduction, viz: automated exposure control, ma/kV adjustment per patient size (including targeted exams where dose is matched to indication, i.e. head), or iterative reconstruction technique. FINDINGS: No midline shift, mass effect, intracranial hemorrhage, hydrocephalus, or extra-axial fluid collection is evident. Prosthetic left globe is present. The calvarium has an unremarkable appearance. No mastoid effusion. No sinus air-fluid level. IMPRESSION: No acute intracranial finding Dictated by: Keagan Rodriguez MD 11/06/2020 08:47 Keagan Rodriguez MD in [facility] 11/06/2020 08:47
[2020-11-05 23:21] LABS: Basophils # 0.1 K/mm3 (0-0.2); Basophils % 1.5 % (0.1-2.0); Eosinophils # 0.3 K/mm3 (0.0-0.4); Eosinophils % 3.9 % (0.1-12.0); Hematocrit 46.4 % (42.0-52.0); Hemoglobin 15.6 g/dL (14.1-18.0); Lymphocytes # 2.4 K/mm3 (0.7-4.5); Lymphocytes % 33.1 % (10-50); Mean Corpuscular HGB Conc 33.6 g/dL (31.8-35.4); Mean Corpuscular Hemoglobin 31.5 pg (27.0-31.2); Mean Corpuscular Volume 93.7 fl (80-94); Mean Platelet Volume 7.9 fl (7.4-10.4); Monocytes # 0.6 K/mm3 (0.1-1.0); Monocytes % 7.9 % (1.7-9.3); Neutrophils % 53.6 % (37.0-80.0); Platelet Count 180 K/mm3 (142-424); Red Blood Count 4.95 M/mm3 (4.60-6.20); Red Cell Distribution Width 12.7 % (11.5-17.5); White Blood Count 7.4 K/mm3 (4.8-10.8)
[2020-11-05 23:30] LABS: Alanine Aminotransferase 53 U/L (12-78); Albumin Level 4.8 g/dl (3.5-5.0); Alkaline Phosphatase 105 U/L (38-126); Anion Gap 11.8 mEq/L (5-15); Aspartate Amino Transferase 36 U/L (17-59); Bilirubin,Direct 0.1 mg/dl (0.0-0.4); Bilirubin,Indirect 0.4 mg/dL (0.0-0.9); Bilirubin,Total 0.5 mg/dl (0.2-1.3); Bilirubin,Unconjugated 0.4 mg/dL (0.0-1.1); Blood Urea Nitrogen 13 mg/dl (9-20); Calcium 9.5 mg/dl (8.4-10.2); Carbon Dioxide 27 mmol/L (22.0-30.0); Chloride 102 mmol/L (98-107); Creatinine Clearance Estimated 142 mL/min (50-200); Estimated Glomerular Filt Rate 67 ml/min (>60); GFR (African American) 81 ML/MIN (>60); Glucose 135 mg/dl (74-100); Potassium 3.8 mmoL/L (3.5-5.1); Sodium 137 mmol/L (136-145); Total Protein,Serum 8.3 g/dl (6.3-8.2)
--- NOTE | 2020-11-05 23:42 | HMH.EDHA ---
ED Disposition Clinical Impression: Migraine Qualifiers: Migraine type: unspecified Status migrainosus presence: without status migrainosus Intractability: not intractable Qualified Code(s): G43.909 - Migraine, unspecified, not intractable, without status migrainosus Disposition: Home, Self-Care Condition on Discharge: Good Instructions: DI for Migraine Additional Instructions: fluids and see pcp as planned sunday - Prescriptions: SUMAtriptan succinate [Imitrex 25mg Tablet] 50 mg PO BID PRN #9 tab PRN Reason: Headache Transmission Status: Pending to [id number] Referrals: Dong Canas MD [Primary Care Provider] - - Critical Care Critical Care Time: No Attestation: On 11/05/20, the high probability of a clinically significant, sudden or life threatening deterioration of the following system(s) required my full and direct attention, intervention and personal management. The time I documented below is in addition to time spent performing reported procedures but includes the following listed in this critical care notation. Medical Decision Making - Medical Records Medical records reviewed: Yes: I reviewed the patient's medical records. - George Inquiry Pt receiving controlled substance: No Vital Signs: 11/05/20 22:53 Temperature 98.1 F Temperature Source Oral Pulse Rate [Right Brachial] 117 H Respiratory Rate 18 Blood Pressure [Right Arm] 147/88 H Blood Pressure Mean [Right Arm] 107 Blood Pressure Source [Right Arm] Automatic Cuff Blood Pressure Position [Right Arm] Sitting 02 Sat by Pulse Oximetry 97 Oxygen Delivery Method Room Air - Lab Data Lab results reviewed: Yes: I reviewed the patient's lab results. Lab Results 11/05/20 23:00: WBC 7.4, RBC 4.95, Hgb 15.6, Hct 46.4, MCV 93.7, MCH 31.5 H, MCHC 33.6, RDW 12.7, Plt Count 180, MPV 7.9, Neut % (Auto) 53.6, Lymph % (Auto) 33.1, [place] % (Auto) 7.9, Eos % (Auto) 3.9, Baso % (Auto) 1.5, Neut # (Auto) 4.0, Lymph # (Auto) 2.4, [place] # (Auto) 0.6, Eos # (Auto) 0.3, Baso # (Auto) 0.1 11/05/20 23:00: Sodium 137, Potassium 3.8, Chloride 102, Carbon Dioxide 27, Anion Gap 11.8, BUN 13, Creatinine 1.20, Estimated Creat Clear 142, Estimated GFR 67, Est GFR ( Amer) 81, Glucose 135 H, Calcium 9.5, Total Bilirubin 0.5, Direct Bilirubin 0.1, Conjugated Bilirubin 0.0, Indirect Bilirubin 0.4, Unconjugated Bilirubin 0.4, AST 36, ALT 53, Alkaline Phosphatase 105, Total Protein 8.3 H, Albumin 4.8 11/05/20 23:00: ESR 15 11/05/20 23:00: C-Reactive Protein 19.5 H Result diagrams: 11/05/20 23:00 11/05/20 23:00 Orders (Tests/Meds): ED MEDICATIONS Generic Name Dose Route Start Last Admin Trade Name Freq PRN Reason Stop Dose Admin Sodium Chloride 1,000 mls @ 999 mls/hr 11/05/20 23:15 11/05/20 23:49 Sod Chlor 0.9% 1000ml Bag IV 11/06/20 00:15 999 mls/hr .Q1H1M STAR Administration Sodium Chloride 8 ml 11/05/20 23:11 Sodium Chloride 0.9% 10ml Vial IV 12/05/20 23:10 NEEDED PRN dilute pepcid Discontinued Medications Generic Name Dose Route Start Last Admin Trade Name Freq PRN Reason Stop Dose Admin Famotidine 20 mg 11/05/20 23:11 11/05/20 23:48 Famotidine 20mg/2ml Vial IV 11/05/20 23:12 20 mg ONCE ONE Administration Methylprednisolone Sodium Succinate 125 mg 11/05/20 23:11 11/05/20 23:49 Methylprednisolone Sod Succ 125mg Vial IV 11/05/20 23:12 125 mg ONCE ONE Administration Metoclopramide HCl 10 mg 11/05/20 23:11 11/05/20 23:49 Metoclopramide Hcl 10mg/2ml Vial IVP 11/05/20 23:12 10 mg ONCE ONE Administration ORDERS Category Date Time Status CT head/brain wo con Stat Cat Scan 11/05/20 23:11 Taken - CT Data CT Scan: Head Time Received: 00:[address] Reviewed: Yes: I have viewed the radiologist's interpretation Preliminary Findings: Abnormal (nonspecific ) Medical Decision Narrative: has prob atypical migraine but drove himself to ed therefore limiting treatment optio
[2020-11-05 23:58] LABS: C-Reactive Protein 19.5 mg/L (0-4)
[2020-11-06 00:10] LABS: Erythrocyte Sedimentation Rate 15 mm/hr (0-15)
[2020-11-06 00:36] VITALS: BP 142/75; PULSE 78; RESP 18; TEMP 36.6; O2SAT 98
== END 2020-11-06 00:42 | disposition home or self-care (01) ==
PROVIDERS: Emergency Provider Emergency Medicine; PCP Emergency Medicine
DX: G43.909 Migraine, unspecified, not intractable, without status migrainosus (principal); I10 Essential (primary) hypertension; E78.5 Hyperlipidemia, unspecified; E11.9 Type 2 diabetes mellitus without complications; F17.210 Nicotine dependence, cigarettes, uncomplicated; Z79.899 Other long term (current) drug therapy
CPT/HCPCS: 70450; 80048; 80076; 85025; 85651; 86140; 96365; 96375; 99282

== ENCOUNTER → 2020-12-01 14:32 | Outpatient (CLI) | payer BC, SELFPAY ==
--- NOTE | 2020-12-01 14:33 | CT_ITS ---
PROCEDURE: CT HEAD/BRAIN WO CON CLINICAL INDICATION: headache Severe headache COMPARISON: CT CT HEAD/BRAIN WO CON from 11/05/2020 TECHNIQUE: Axial images obtained. All CT scans at the facility use one or more dose reduction, viz: automated exposure control, ma/kV adjustment per patient size (including targeted exams where dose is matched to indication, i.e. head), or iterative reconstruction technique. FINDINGS: No midline shift or mass effect is evident. No evidence of acute intracranial hemorrhage. There is mild prominence of the lateral ventricles. The 3rd ventricle is small with a normal size 4th ventricle. A definite lesion is not identified at the foramen of [place]. Consider MRI for more thorough evaluation. MRI of the brain without and with contrast may provide further evaluation. 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 IMPRESSION: Mild prominence of the lateral ventricles with slit-like 3rd ventricle. Consider MRI without and with contrast for more thorough evaluation to exclude obstructing lesion at the foramen of [place]. Dictated by: Keagan Rodriguez MD 12/01/2020 16:30 Keagan Rodriguez MD in [place] 12/01/2020 16:30
== END ==
PROVIDERS: PCP Emergency Medicine; Visit Provider Specialist
DX: R51.9 Headache, unspecified (principal)
CPT/HCPCS: 70450

== ENCOUNTER → 2020-12-01 14:53 | Outpatient (CLI) | payer BC, SELFPAY ==
[2020-12-01 15:40] LABS: Alanine Aminotransferase 31 U/L (12-78); Albumin Level 4.6 g/dl (3.5-5.0); Alkaline Phosphatase 88 U/L (38-126); Aspartate Amino Transferase 24 U/L (17-59); Bilirubin,Direct 0.1 mg/dl (0.0-0.4); Bilirubin,Indirect 0.5 mg/dL (0.0-0.9); Bilirubin,Total 0.6 mg/dl (0.2-1.3); Bilirubin,Unconjugated 0.5 mg/dL (0.0-1.1); Cholesterol 136 mg/dl (140-200); HDL Cholesterol 37 mg/dl (40-60); Total Protein,Serum 7.1 g/dl (6.3-8.2); Triglycerides 141 mg/dl (30-150); VLDL Cholesterol 28 mg/dL (0-40)
[2020-12-01 15:41] LABS: Chol/HDL Ratio 3.7 (1-3.5)
[2020-12-01 15:51] LABS: Direct LDL Cholesterol 86.95 mg/dL (100-129)
== END ==
PROVIDERS: Visit Provider Urology
DX: E78.5 Hyperlipidemia, unspecified (principal); R06.00 Dyspnea, unspecified; I25.118 Atherosclerotic heart disease of native coronary artery with other forms of angina pectoris; I10 Essential (primary) hypertension; Z72.0 Tobacco use
CPT/HCPCS: 36415; 80061; 80076

== ENCOUNTER → 2020-12-10 13:43 | Outpatient (CLI) | payer BC, SELFPAY ==
[2020-12-10 14:28] LABS: Basophils # 0.2 K/mm3 (0-0.2); Basophils % 1.8 % (0.1-2.0); Eosinophils # 0.3 K/mm3 (0.0-0.4); Eosinophils % 3.6 % (0.1-12.0); Hematocrit 44.4 % (42.0-52.0); Hemoglobin 14.6 g/dL (14.1-18.0); Lymphocytes # 2.8 K/mm3 (0.7-4.5); Lymphocytes % 32.6 % (10-50); Mean Corpuscular HGB Conc 32.9 g/dL (31.8-35.4); Mean Corpuscular Hemoglobin 30.8 pg (27.0-31.2); Mean Corpuscular Volume 93.5 fl (80-94); Mean Platelet Volume 7.9 fl (7.4-10.4); Monocytes # 0.4 K/mm3 (0.1-1.0); Monocytes % 5.2 % (1.7-9.3); Neutrophils # 4.8 K/mm3 (1.8-7.8); Neutrophils % 56.9 % (37.0-80.0); Platelet Count 201 K/mm3 (142-424); Red Blood Count 4.75 M/mm3 (4.60-6.20); Red Cell Distribution Width 13.3 % (11.5-17.5); White Blood Count 8.4 K/mm3 (4.8-10.8)
[2020-12-10 14:34] LABS: Chloride 102 mmol/L (98-107); Potassium 4.1 mmoL/L (3.5-5.1); Sodium 137 mmol/L (136-145)
[2020-12-10 14:37] LABS: Blood Urea Nitrogen 13 mg/dl (9-20); Estimated Glomerular Filt Rate 83 ml/min (>60); GFR (African American) 100 ML/MIN (>60)
[2020-12-10 14:38] LABS: Anion Gap 13.1 mEq/L (5-15); Calcium 9.6 mg/dl (8.4-10.2); Carbon Dioxide 26 mmol/L (22.0-30.0); Glucose 119 mg/dl (74-100)
[2020-12-10 15:26] LABS: Coronavirus 19 IgG Antibody Negative (Negative); Coronavirus 19 IgM Antibody Negative (Negative)
== END ==
PROVIDERS: Visit Provider Urology
DX: Z01.812 Encounter for preprocedural laboratory examination (principal); Z11.52 Encounter for screening for COVID-19; R32 Unspecified urinary incontinence
CPT/HCPCS: 36415; 80048; 85025; 86328

== ENCOUNTER 2020-12-13 08:03 | Day surgery (SDC) | payer BC, SELFPAY ==
[2020-12-07 13:59] VITALS: BMI 33.9
[2020-12-13] VITALS (11 sets, daily range): BP systolic 92–134; BP diastolic 46–88; PULSE 66–86; RESP 16–22; TEMP 36.1–36.5; O2SAT 96–100
[2020-12-13 08:50] LABS: POC Glucose,Bedside 123 (70-110)
--- NOTE | 2020-12-13 11:13 | HMH.ANESCL ---
[facility] Anesthesia Checklist - Structural Data Admitted From: Home Planned Operative Procedure/s: Interstim removal and replacement Consent for Planned Operative Procedure(s) Verified: Yes Verified Documents: Surgical Consent, History and Physical - NPO Status Verified Time NPO: 00:00 - Additional verifications Anesthesia Reactions: No Hx Blood Transfusions: No Blood Transfusion Reaction: No - Airway Assessment C-Spine Mobility Assessed: Yes TMJ Mobility Assessed: Yes Dentition: Edentulous - Neurological Assessment Level of Consciousness: Awake, Alert - Anesthesia Plan Anesthesia Risk discussed: Yes Anesthesia Plan: Verified ASA Class: III Anesthesia Type: General [facility] History Medical History: Reports:: Anxiety, Chronic Obstructive Pulmonary Disease (COPD), Coronary Artery Disease, Depression, Diabetes Mellitus Type 2, Gastroesophageal Reflux Disease(GERD), Hyperlipidemia, Hypertension, Migraine, Renal Disease Denies:: Cancer, Diabetes Mellitus Type 1, Internal Pacemaker, MRSA, Seizures *Have you ever received a pneumonia vaccine?: No *Have you received a flu vaccine this season?: Yes Other Medical History: Reports: Glaucoma, Other (sue). Denies: Blood Transfusion Reaction Anesthesia experience/problems:: None Laterality Cases: Bilateral: Tonsillectomy Other Surgeries: Yes: Appendectomy, Cardiac Catheterization. No: Pacemaker Amputation: No Fractures: No - *Social History Last grade of school completed: High school graduate Smoking Status: Current every day smoker Tobacco Type: cigarettes # Packs/Day (cigarettes): 1 Alcohol Intake: never Substance Use Type: denies use *Occupational Status:: disabled Housing: house Household Members: friend(s) *Travel in the last 8 weeks: None - Psychiatric History Pschychiatric History:: Reports:: Anxiety, Depression Family Hx:: Asthma, Coronary Artery Disease, Diabetes, Heart Attack, Hyperlipidemia, Hypertension, Mental illness
--- NOTE | 2020-12-13 11:53 | XR_ITS ---
PROCEDURE: XR KUB CLINICAL INDICATION: BLADDER INTERSTIM REMOVAL AND REPLACEMENT OR INCONTINENCE COMPARISON: CT CT ABDOMEN PELVIS WO CON from 09/22/2020 FINDINGS: Fluoroscopy time: 1 minutes 35 seconds 2 images are submitted demonstrating a bladder stimulator device overlying the mid and posterior aspect the pelvis on the right IMPRESSION: Bladder stimulator device in place on the 2 images submitted Dictated by: Keagan Rodriguez MD 12/13/2020 17:31 Keagan Rodriguez MD in [place] 12/13/2020 17:31
--- NOTE | 2020-12-13 13:04 | SUR.PHASEI ---
1239-pt to pacu via stretcher. Report given per Emi Tello RN and Ashley RN. Pt is sleeping and not arousable. Respirations are easy and unlabored. Yamil hugger placed on pt. 1300-Finger stick done. 125 Reading. Pt is awake and able to open eyes. VSS.
[2020-12-13 13:14] LABS: POC Glucose,Bedside 125 (70-110)
--- NOTE | 2020-12-13 16:24 | HMH.ANESII ---
[facility] Anesthesia Record Part II Discharge Time: 13:10 Destination: Surgical Day Care (OP Surgery) PACU nurse assessment reviewed?: Yes Patient Condition:: Good Anesthesia Complications:: None Swallowing reflex intact?: Yes Cyanosis?: No Blood Pressure: 116/75 Pulse Rate: 72 Temperature: 97.1 F Mental Status: Alert & Oriented Pain level:: 0 Nausea and/or vomitting:: None Intake, IV Amount: 0
--- NOTE | 2020-12-13 17:33 | HMH.OPNOTE ---
Date of procedure: 12/13/20 Pre-op Diagnosis:: Urge incontinence Post-op Diagnosis:: Same Procedure performed:: Removal of old InterStim generator and electrodes and replacement of MRI compatible InterStim generator and electrodes with complex programming Surgeon:: Pritesh Hirsch MD HIDE STRETCHER HAND:: Other Anesthesia: GETA Estimated blood loss (mL): 20 Clinical Note:: Patient is a 40-year-old white male with history of refractory urge incontinence. He had a prior InterStim device placed 2012 while living in [place]. States that the device is no longer working and presented recently for evaluation. Patient also has a history of degenerative joint disease and has been unable to get MRIs due to the InterStim. We discussed replacement of his current InterStim with a new MRI compatible InterStim for which he presents today. Operative findings:: The old electrode lead was difficult to find and 2 incisions were necessary to locate it. It was removed intact and the new InterStim was placed without difficulty and was noted to be in excellent position. Operative note:: Patient taken to the operating room after informed consent was obtained. General anesthesia was performed on the stretcher and patient was then rolled onto the table in the prone position. He was padded appropriately. Padding was placed under the lower abdomen as well as the shins. He was prepped and draped in the standard surgical fashion. Preoperative antibiotics and sequential compression devices were placed. Local anesthetic was placed into the old scar over the battery site. Scalpel was used to incise through the old scar and we dissected down to the battery which was removed without difficulty. The set screw was loosened from the battery and the battery passed off. By pulling on the lead we could see where the lead insertion site above the sacral foramen was dimpling. Incision was made over this area and dissection failed to identify the lead. After working for a while and without identifying the lead we brought in the x-ray equipment and then the lateral view could see the wire below were current incision was made. Another incision was made about 2 inches below the previous 1 and the lead was then identified and brought up through the incision. The lead was then gently grasped and gentle traction was applied to the tined lead and it was removed in a straight line upwards. The lead was inspected and removed intact. Hemostasis was maintained. The lead introducer and pocket sites were then irrigated with antibiotic solution and sterile water. We then proceeded to full implant of the SureScan InterStim placement. The medial edges of the sacral foramina were identified and marked. We then identified the line crossing the inferior ischial spine. The needle entry point was then determined and the foramen needle was placed in the superior medial aspect of the S3 foramen and appropriate needle depth was visualized utilizing fluoroscopy. Proper S3 needle location was also confirmed by direct observation of the lifting of the perineum and plantar flexion of the great toe utilizing the test stimulation cable, the ENS and vb net programmer. The foramen needle stylette was removed and a directional guide was placed through the needle using markers on the guide to assure appropriate depth. The foramen needle was removed by sliding over the directional guide. A small incision was made peripherally to the directional guide through the skin. The lead introducer with dilator was placed over the directional guide and utilizing fluoroscopic guidance, the lead introducer was advanced until the radiopaque marker was senior living through the foramen. The dilator was removed along with the directional guide. Using fluoroscopy the tined lead with a bent tip stylette was placed through the introducer until electrodes 2 and 3 straddled the anterior surface of the sacrum. All 4 electrodes were tested, observing
== END 2020-12-13 14:10 | disposition home or self-care (01) ==
PROVIDERS: PCP Emergency Medicine; Visit Provider Urology
PROC: (CPT 64590; principal; 2020-12-13 09:30)
DX: R32 Unspecified urinary incontinence (principal); F41.9 Anxiety disorder, unspecified; J44.9 Chronic obstructive pulmonary disease, unspecified; I25.10 Atherosclerotic heart disease of native coronary artery without angina pectoris; E11.9 Type 2 diabetes mellitus without complications; K21.9 Gastro-esophageal reflux disease without esophagitis; E78.5 Hyperlipidemia, unspecified; I10 Essential (primary) hypertension; G43.909 Migraine, unspecified, not intractable, without status migrainosus; N28.9 Disorder of kidney and ureter, unspecified; H40.9 Unspecified glaucoma; G47.33 Obstructive sleep apnea (adult) (pediatric)
CPT/HCPCS: 64590; 64581; 74018; 82962; 96374; C1767; C1778; J2405

== ENCOUNTER → 2020-12-14 11:47 | Outpatient (CLI) | payer BC, SELFPAY | PROVIDERS: Visit Provider Specialist | DX: G47.33 Obstructive sleep apnea (adult) (pediatric) (principal) | CPT/HCPCS: G0399 ==